=== PATIENT | male | born 1965 | race Caucasian/White ===

== ENCOUNTER 2024-07-23 23:52 | Emergency (ER) | payer SELFPAY ==
[2024-07-23 23:54] VITALS: BP 187/101; PULSE 107; O2SAT 92
--- NOTE | 2024-07-23 23:58 | ED_ITS ---
HPI - Alcohol General Chief Complaint: Fall Stated Complaint: fall etoh Time Seen by Provider: 07/23/24 23:55 History of Present Illness HPI narrative: 58yoM presents for evaluation of a fall. History obtained from EMS, patient, and at bedside. states that they had finished opening [employer] when he began to droop like he was falling asleep. He got up but stumbled into the [employer] tree and a lamp. noted that patient's speech was slurred and was concerned that patient may have had a stroke. EMS reports patient told them he had several glasses of wine. Patient states he has a speech impediment and this is normal for him. He says he tripped over his feet, which is why he fell at home. also states that patient is a secret drinker and he has been dishonest about his drinking to his family. Related Data Allergies Allergy/AdvReac Type Severity Reaction Status Date / Time No Known Drug Allergies Allergy Verified 07/24/24 00:06 Patient History Social History Smoking Status: Never smoker Exam Initial Vital Signs Initial Vital Signs: Vital Signs Pulse Rate 107 H 07/23/24 23:54 Blood Pressure 187/101 H 07/23/24 23:54 Pulse Oximetry 92 07/23/24 23:54 Oxygen Delivery Method Nasal Cannula 07/23/24 23:54 Oxygen Flow Rate 3 07/23/24 23:54 Const: Awake, alert, no acute distress, appears intoxicated Cardiac: tachycardia, regular rhythm RESP: unlabored, clear bilaterally, no wheezing GI: Soft, nontender, nondistended Skin: Warm, Dry, intact, no rashes Neuro: AO x3, CN II-XII grossly intact, moves all extremities, slurred speech present Course Orders Ordered: ED Orders 07/24/24 00:25 CBC Auto Diff [Complete Blood Count AUTO DIFF] Stat CMP [Comprehensive Metabolic Panel] Stat Ethanol (ETOH) Stat 07/24/24 01:34 CT head/brain wo con Stat Discontinued Medications Thiamine HCl 200 mg/ Sodium (Chloride) 102 mls @ 408 mls/hr IV NOW ONE Stop: 07/24/24 00:15 Last Infusion: 07/24/24 01:01 Dose: Infused Documented By: Admin: 07/24/24 00:40 Dose: 408 mls/hr Documented By: Ondansetron HCl (Ondansetron 4 Mg/2 Ml Inj) 4 mg IV NOW ONE Stop: 07/24/24 00:15 Last Admin: 07/24/24 00:41 Dose: 4 mg Documented By: Vital Signs Vital signs: Vital Signs - 8 hr 07/23/24 23:54 07/23/24 23:54 07/24/24 00:00 Temperature 97.9 F Pulse Rate 107 H 97 H Respiratory Rate 20 Blood Pressure 187/101 H 166/89 H Pulse Oximetry 92 93 Oxygen Delivery Method Nasal Cannula Room Air Oxygen Flow Rate 3 07/24/24 00:00 07/24/24 00:00 07/24/24 00:30 Temperature Pulse Rate 101 H 103 H Respiratory Rate 9 L 14 Blood Pressure 166/89 H Pulse Oximetry 92 96 Oxygen Delivery Method Nasal Cannula Oximask Oxygen Flow Rate 3 4 07/24/24 00:46 07/24/24 00:46 07/24/24 01:00 Temperature Pulse Rate 106 H 112 H Respiratory Rate 11 L 11 L Blood Pressure 133/79 Pulse Oximetry 97 94 Oxygen Delivery Method Oximask Oximask Oxygen Flow Rate 4 6 07/24/24 01:00 07/24/24 01:30 07/24/24 01:30 Temperature Pulse Rate 115 H Respiratory Rate 12 Blood Pressure 153/75 H 161/88 H Pulse Oximetry 96 Oxygen Delivery Method Oximask Oxygen Flow Rate 6 07/24/24 02:32 07/24/24 04:02 07/24/24 05:05 Temperature Pulse Rate 109 H 114 H 104 H Respiratory Rate 18 20 19 Blood Pressure 139/71 134/85 143/86 H Pulse Oximetry 95 97 97 Oxygen Delivery Method Oximask Oximask Oximask Oxygen Flow Rate 6 6 6 MDM - Alcohol Lab Data 07/24/24 00:25 07/24/24 00:25 Labs: Lab Results 07/24/24 Range/Units 00:25 WBC 6.8 (4.5-11.0) X10^3/uL RBC 4.54 (4.5-5.9) X10^6/uL Hgb 14.0 (13.5-17.5) g/dL Hct 41.1 (41-53) % MCV 90.5 (80-100) fL MCH 30.8 (26-34) PG MCHC 34.0 (30-36) % RDW 13.1 (11.6-14.8) % Plt Count 250 (150-400) X10^3/uL Neut % (Auto) 53.4 (50-75) % Lymph % (Auto) 38.8 (25-40) % Simpson % (Auto) 4.4 (3-14) % Eos % (Auto) 2.6 (2-4) % Baso % (Auto) 0.8 (0-2) % Neut # (Auto) 3600 (0388-0823) /uL Lymph # (Auto) 2600 (7021-4172) /uL Simpson # (Auto) 300 (0-900) /uL Eos # (Auto) 200 (0-450) /uL Baso # (Auto) 100 (0-100) /uL Sodium 144 (137-145) mmol/L Potassium 4.3 (3.4-5.1) mmol/L Chloride 106 (98-107) mmol/L Carbon Dioxide 28 (22-32) mmol/L BUN 23 H (9-20) mg/dL Creatinine 0.89 (0.66-1.25) mg/dL Estimated GFR > 60 (>60) mL/min BUN/Creatinine Ratio 25.8 H (6-22) Glucose 147 H (70-100) mg/dL Calcium 8.2 L (8.4-10.2) mg/dL Total Bilirubin 0.6 (0.2-1.3) mg/dL AST 45 (17-59) IU/L ALT 48 (<50) IU/L Alkaline Phosphatase 58 (38-126) U/L Total Protein 7.7 (6.3-8.2) g/dL Albumin 4.5 (3.5-5.0) g/dL Globulin 3.2 (1.7-4.1) g/dL Albumin/Globulin Ratio 1.4 (1.0-2.8) Ethyl Alcohol 253 H ( - 10) mg/dL Imaging Data CT scan - head: Radiologist's Impressoin: PROCEDURE: CT HEAD/BRAIN WO CON INDICATIONS: AMS/ETOH TECHNIQUE: Noncontrast 4.5 mm thick angled axial sections acquired from the foramen magnum to the vertex, with coronal and sagittal reformats. For radiation dose reduction, the following was used: automated exposure control, adjustment of mA and/or kV according to patient size. COMPARISON: None. FINDINGS: Image quality: Streak artifact can be seen through the skull base. CSF spaces: Basal cisterns are patent. No extra-axial fluid collections. Ventricles are normal in size and shape. Brain: No midline shift. No intracranial masses or hemorrhage. [place]ley-white matter interface is normal. Skull and face: Calvarium and visualized facial bones are intact, without suspicious lesions. Sinuses: There is a mucous retention cyst within the left maxillary sinus. Visualized sinuses and mastoids are otherwise clear. IMPRESSION: No acute intracranial hemorrhage is seen. No acute intracranial pathology. Dictated by: Ilan Vera M.D. on 07/24/2024 at 0:57 Approved by: Ilan Vera M.D. on 07/24/2024 at 0:57 MDM Narrative Medical decision making narrative: Slurred speech, falling into objects. Patient arrives appearing intoxicated. Did admit to drinking alcohol tonight. Labs significant for EtOH level 253. Patient when sleeping has drop in saturations and is currently on oximask. Patient has large neck and confirms patient snores loudly at night. Likely KASSANDRA. very concerned about possible stroke. Symptoms are most likely secondary to alcohol consumption and not acute CVA, however he does still have a slight slur to his speech. Patient monitored in the ED. He was ambulatory to the bathroom and back with a steady gait, slur in speech resolved. Patient denying complaints and states he feels quite well. Patient counseled on alcohol use, offered resources for local detox and rehab centers. Patient stated he wasn't worried, that something weird happened last night, but he did accept resource papers. Discharge Plan Departure Patient Disposition: Home Clinical Impression: Alcohol intoxication Instructions: DI for Alcohol Use Disorder Activity Restrictions/Additional Instructions: Your laboratory work today was normal other than an elevated alcohol level. The CT of your brain did not show any signs of a stroke. Please use the provided resources to help stop using alcohol. Follow up with your primary care doctor Referrals: Miguel Angel Cortés MD [Primary Care Provider] - Stand Alone Forms: Patient Portal/API/Survey
[2024-07-24] VITALS (8 sets, daily range): BP systolic 133–166; BP diastolic 71–89; PULSE 97–115; RESP 9–20; TEMP 36.6; O2SAT 92–97; BMI 31.6
[2024-07-24 00:38] LABS: Add Manual Diff / Slide Review NO; Basophils Absolute Auto 100 /uL (0-100); Basophils Percent Auto 0.8 % (0-2); Eosinophils Absolute Auto 200 /uL (0-450); Eosinophils Percent Auto 2.6 % (2-4); Hematocrit 41.1 % (41-53); Lymphocytes Absolute Auto 2600 /uL (1100-4500); Lymphocytes Percent Auto 38.8 % (25-40); Mean Corpuscular Hemoglobin 30.8 PG (26-34); Mean Corpuscular Volume 90.5 fL (80-100); Monocytes Absolute Auto 300 /uL (0-900); Monocytes Percent Auto 4.4 % (3-14); Neutrophils Absolute Auto 3600 /uL (1500-7000); Neutrophils Percent Auto 53.4 % (50-75); Platelet Count 250 X10^3/uL (150-400); Red Blood Cell Count 4.54 X10^6/uL (4.5-5.9); Red Cell Distribution Width 13.1 % (11.6-14.8); White Blood Cell Count 6.8 X10^3/uL (4.5-11.0)
[2024-07-24] MEDS: THIAMINE 200 MG in SODIUM CHLORIDE 0.9% 100 ML 408 MG IV (00:40)
[2024-07-24] MEDS: ONDANSETRON 4 MG/2 ML INJ IV (00:41)
[2024-07-24 00:57] LABS: Alanine Aminotransferase 48 IU/L (<50); Albumin 4.5 g/dL (3.5-5.0); Albumin Globulin Ratio 1.4 (1.0-2.8); Alkaline Phosphatase 58 U/L (38-126); Aspartate Aminotransferase 45 IU/L (17-59); BUN Creatinine Ratio 25.8 (6-22); Bilirubin Total 0.6 mg/dL (0.2-1.3); Blood Urea Nitrogen 23 mg/dL (9-20); Calcium 8.2 mg/dL (8.4-10.2); Carbon Dioxide 28 mmol/L (22-32); Chloride 106 mmol/L (98-107); Estimated Glomerular Filt Rate > 60 mL/min (>60); Ethanol (ETOH) 253 mg/dL; Globulin 3.2 g/dL (1.7-4.1); Glucose 147 mg/dL (70-100); HEMOLYSIS 49 (0-50); Potassium 4.3 mmol/L (3.4-5.1); Sodium 144 mmol/L (137-145); Total Protein 7.7 g/dL (6.3-8.2)
--- NOTE | 2024-07-24 01:34 | DI.CT.S_ITS ---
PROCEDURE: CT HEAD/BRAIN WO CON INDICATIONS: AMS/ETOH TECHNIQUE: Noncontrast 4.5 mm thick angled axial sections acquired from the foramen magnum to the vertex, with coronal and sagittal reformats. For radiation dose reduction, the following was used: automated exposure control, adjustment of mA and/or kV according to patient size. COMPARISON: None. FINDINGS: Image quality: Streak artifact can be seen through the skull base. CSF spaces: Basal cisterns are patent. No extra-axial fluid collections. Ventricles are normal in size and shape. Brain: No midline shift. No intracranial masses or hemorrhage. [place]ley-white matter interface is normal. Skull and face: Calvarium and visualized facial bones are intact, without suspicious lesions. Sinuses: There is a mucous retention cyst within the left maxillary sinus. Visualized sinuses and mastoids are otherwise clear. IMPRESSION: No acute intracranial hemorrhage is seen. No acute intracranial pathology. Dictated by: Ilan Vera M.D. on 07/24/2024 at 0:57 Approved by: Ilan Vera M.D. on 07/24/2024 at 0:57
--- NOTE | 2024-07-24 01:40 | PC.NURSE ---
Pt to imaging via ED stretcher with tech.
--- NOTE | 2024-07-24 01:46 | PC.NURSE ---
Pt with increasing O2 needs with sats dropping below 80% at times while sleeping. Pt initially placed on 3lnc, then switched to oximask at 4 liters, then increased to 6 liters. Towel roll placed under shoulders to assist in opening airway.
--- NOTE | 2024-07-24 03:06 | PC.NURSE ---
Pt resting quietly with eyes closed, resps even and not labored. No distress noted at this time. Pt rouses easily to verbal stimuli and answers questions appropriately.
--- NOTE | 2024-07-24 04:03 | PC.NURSE ---
No change in patient condition or status. Pt resting quietly with eyes closed, resps even and not labored. No distress noted at this time. Pt rouses easily to verbal stimuli. Pt remains connected to cardiac, resp, blood pressure, and pulse ox monitors with alarms on and audible. Call light within reach.
--- NOTE | 2024-07-24 05:05 | PC.NURSE ---
No change in patient condition or status. Pt resting quietly with eyes closed, resps even and not labored. No distress noted at this time. Pt rouses easily to verbal stimuli and verbalizes no complaints at this time. Pt remains connected to cardiac, resp, blood pressure, and pulse ox monitors with alarms on and audible. Call light within reach.
--- NOTE | 2024-07-24 05:24 | PC.NURSE ---
Pt ambulatory to restroom without difficulty or assistance
== END 2024-07-24 05:38 | disposition home or self-care (01) ==
PROVIDERS: Emergency Provider Emergency Medicine; PCP Family Medicine
DX: F10.129 Alcohol abuse with intoxication, unspecified (principal); Y90.8 Blood alcohol level of 240 mg/100 ml or more
CPT/HCPCS: 36415; 70450; 80053; 80320; 85025; 96365; 96375; 99284; J2405